=== PATIENT | female | born 1970 | race Caucasian/White ===

== ENCOUNTER → 2023-10-30 | Emergency (ER) | payer OTHER ==
[~2023-10-30] MED LIST: KETOROLAC 30 MG/ML INJ ONE; MORPHINE 4 MG/ML SYR ONE; NA CHLORIDE 0.9% 1,000 ML ONE; ONDANSETRON 4 MG/2 ML VIAL ONE; TAMSULOSIN 0.4 MG SR CAP ONE
--- OUTSIDE RECORDS SUMMARY | 2023-10-30 05:04 | XMS REPORT | Continuity of Care Document ---
Author Name Unknown Address [address] [facility] [address]. [address] th[address] Address [address] [facility]. [address] [place] [address] Care Team Providers Care Field Inspector Name Role Phone [email or web address] Attending Clinician Unavaila ble [email or web address] Admitting Clinician Unavaila ble Payers Payer Name Policy Type Policy Number Effective Date Expirati on Date Source AETJAGDEEP (PPO) [id number] 2018 00:00:00 Encounters Start Date/Time End Date/Time Encounter Type Admission Type Attending Clinicians Care Facility Care Department Encounter ID Source 2023-07-09 00:00:00 2023-07-09 00:00:00 Outpatient GC_SWHASLWC _NguyenC PRIV PRIV [id number] [facility] 2023-07-08 00:00:00 2023-07-08 00:00:00 Outpatient GC_[email or web address] _NguyenC PRIV PRIV [id number] [facility] 2017-12-14 00:00:00 2017-12-14 00:00:00 Outpatient GC_SWHASLWC _NguyenC PRIV PRIV [id number] [facility]
[2023-10-30 05:54] LABS: Absolute Lymphocytes (CBC) 1.6 K/uL (0.7-4.9); Hematocrit 42.9 % (36.0-45.0); Lymphocytes % 14.8 % (15.3-44.8); MCV 89.1 fL (80-100); MPV 9.2 fL (7.6-11.3); Platelets 262 thou/uL (152-406); RBC Red Blood Cell Count 4.82 M/uL (3.86-4.86)
[2023-10-30 06:00] LABS: Specific Gravity 1.019 (1.005-1.030); Urine Bacteria <20 /HPF (<20); Urine Bilirubin NEGATIVE (Negative); Urine Blood Negative (Negative); Urine Clarity Extremely Turbid (Clear); Urine Color Light-Yellow (Yellow); Urine Glucose TRACE (Negative); Urine Mucus Slight /HPF (None Seen); Urine Protein NEGATIVE (Negative); Urine RBC <5 /HPF (None Seen); Urine Urobilinogen Normal (Normal); Urine pH 6.5 (5.0-7.0)
[2023-10-30 06:08] LABS: ALT/SGPT 22 U/L (13-56); AST/SGOT 15 U/L (15-37); Albumin 3.7 g/dL (3.4-5.0); Alkaline Phosphatase 84 U/L (45-117); BUN Blood Urea Nitrogen 24 mg/dL (7-18); Bicarbonate 21 mEq/L (21-32); Bilirubin Total 0.4 mg/dL (0.2-1.0); Glomerular Filtration Rate 75 ml/min (=/>90); Glucose Level 190 mg/dL (74-106); Lipase 39 U/L (13-75); Potassium 3.4 mEq/L (3.5-5.1); Sodium Level 139 mEq/L (136-145)
[2023-10-30 06:10] LABS: C-Reactive Protein < 2.90 mg/L (<3.00)
--- NOTE | 2023-10-30 07:41 | ER ---
Nurse's Notes [facility] Name: Lachelle Arora Age: 53 yrs Sex: Female : 1970 Arrival Date: 10/30/2023 Time: 05:01 Bed 5 Private MD: Diagnosis: Left ureteral calculus with obstruction. Acute left lower abdominal pain Presentation: 10/30 05:13 Chief complaint: Patient states: abdominal pain at 0230. had 3 BM with minimal relief. lg3 pain to left lower quadrant radiating to left pelvis. 6/10 constant. reports nausea and body shakes. Coronavirus screen: Client denies travel out of the [place] in the last 14 days. At this time, the client does not indicate any symptoms associated with coronavirus-19. Ebola Screen: No symptoms or risks identified at this time. Initial Sepsis Screen: Does the patient meet any 2 criteria? No. Patient's initial sepsis screen is negative. Does the patient have a suspected source of infection? No. Patient's initial sepsis screen is negative. Risk Assessment: Do you want to hurt yourself or someone else? Patient reports no desire to harm self or others. Onset of symptoms was October 30, 2023 at 02:30. 05:13 Method Of Arrival: Ambulatory lg3 05:13 Acuity: CLAY 3 lg3 Triage Assessment: 05:15 General: Appears in no apparent distress. uncomfortable, Behavior is calm, cooperative. lg3 Pain: Complains of pain in left lower quadrant. EENT: No deficits noted. No signs and/or symptoms were reported regarding the EENT system. Neuro: No deficits noted. Freitas Agitation-Sedation Scale (RASS): 0 - Alert and Calm Level of Consciousness is awake, alert, obeys commands, Oriented to person, place, time, situation. Cardiovascular: No deficits noted. Denies chest pain, shortness of breath, Capillary refill < 3 seconds Clubbing of nail beds is absent JVD is absent Patient's skin is warm and dry. Respiratory: No deficits noted. Airway is patent Respiratory effort is even, unlabored, Respiratory pattern is regular, symmetrical. GI: Abdomen is round non-distended, Reports lower abdominal pain. : No deficits noted. No signs and/or symptoms were reported regarding the genitourinary system. Derm: No deficits noted. No signs and/or symptoms reported regarding the dermatologic system. Skin is intact, is healthy with good turgor, Skin is dry, Skin is normal, Skin temperature is warm. Musculoskeletal: No deficits noted. No signs and/or symptoms reported regarding the musculoskeletal system. Circulation, motion, and sensation intact. Range of motion: intact in all extremities. 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 - Social history:: Smoking status: Patient denies any tobacco usage or history of. Patient uses alcohol, weekly. - Family history:: not pertinent. Screenin:12 [facility] ED Fall Risk Assessment (Adult) History of falling in the last 3 months, la4 including since admission No falls in past 3 months (0 pts) Confusion or Disorientation No (0 pts) Intoxicated or Sedated No (0 pts) Impaired Gait No (0 pts) Mobility Assist Device Used No (0 pt) Altered Elimination No (0 pt) Score/Fall Risk Level 0 - 2 = Low Risk Maintained a safe environment, Provided non-skid footwear. Abuse screen: Denies threats or abuse. Denies injuries from another. Nutritional screening: No deficits noted. Tuberculosis screening: No symptoms or risk factors identified. Assessment: 05:30 General: Appears uncomfortable, ill, Behavior is calm, cooperative, appropriate for la4 age. Pain: Complains of pain in right lower quadrant and left lower quadrant Pain does not radiate. Pain currently is 10 out of 10 on a pain scale. Quality of pain is described as aching, Pain began suddenly, reports woke pt from sleep this am at 2 Is continuous, Alleviated by nothing. 05:30 Neuro: Freitas Agitation-Sedation Scale (RASS): 0 - Alert and Calm Level of la4 Consciousness is awake, alert, obeys commands, Oriented to person, place, time, situation, Appropriate for age. Cardiovascular: No deficits noted. Denies chest pain, lightheadedness, shortness of breath, Heart tones S1 S2 Capillary refill < 3 seconds is brisk Patient's skin is warm and dry. Rhythm is sinus rhythm. Respiratory: Airway is patent Respiratory effort is even, unlabored, Respiratory pattern is regular, symmetrical, tachypnea Breath sounds are clear bilaterally. GI: Bowel sounds present X 4 quads. hyperactive in right lower quadrant and left lower quadrant Abd is soft and non tender. : No deficits noted. Derm: No deficits noted. Musculoskeletal: No deficits noted. 07:00 Reassessment: Patient appears in no apparent distress at this time. No changes from kc6 previously documented assessment. Patient and/or family updated on plan of care and expected duration. Pain level reassessed. Patient is alert, oriented x 3, equal unlabored respirations, skin warm/dry/pink. 08:00 Reassessment: Patient appears in no apparent distress at this time. No changes from kc6 previously documented assessment. Patient and/or family updated on plan of care and expected duration. Pain level reassessed. Patient is alert, oriented x 3, equal unlabored respirations, skin warm/dry/pink. Vital Signs: 05:13 BP 156 / 107; Pulse 69; Resp 17 S; Pulse Ox 100% on R/A; Weight 81.65 kg (R); Height 5 lg3 ft. 4 in. (R); 05:30 BP 158 / 105; Pulse 59; Resp 16; Temp 97.7; Pulse Ox 97% on R/A; Pain 10/10; la4 07:05 BP 171 / 99; Pulse 56; Resp 15 S; Pulse Ox 100% on R/A; kc6 05:13 Body Mass Index 30.90 (81.65 kg, 162.56 cm) lg3 05:30 Pain Scale: Adult la4 Vitals: 05:30 Cardiac Rhythm Assessment Regular Sinus erich. la4 Zenia Coma Score: 05:30 Eye Response: spontaneous(4). Motor Response: obeys commands(6). Verbal Response: la4 oriented(5). Total: 15. ED Course: 05:04 Patient arrived in ED. jj6 05:12 Adams Nice MD is Attending Physician. sp4 05:15 Triage completed. lg3 05:15 Arm band placed on left wrist. lg3 05:26 Radiology exam delayed due to lab results not completed at this time. (BUN/Creatinine) eh4 IV insertion attempt and/or patient not having appropriate IV at this time. 05:41 Inserted saline lock: 20 gauge in right antecubital area, using aseptic technique. ls5 Blood collected. 05:41 Urine collected: clean catch specimen, clear. ls5 05:55 CRP Sent. la4 05:55 Lipase Sent. la4 05:55 CMP Sent. la4 05:55 Urinalysis w/ reflexes Sent. la4 06:12 Awaiting lab results. la4 06:12 Fall risk band placed. Placed in gown. Bed in low position. Call light in reach. Side la4 rails up X2. Provided Education on: Plan of care. 06:12 No provider procedures requiring assistance completed. la4 06:18 CT Abd/Pelvis - IV Contrast Only Sent. la4 06:33 CT Abd/Pelvis - IV Contrast Only In Process Unspecified. EDMS 07:40 Fredy Sharma MD is Referral Physician. sp4 07:41 Dayami Armenta, RODRIGO is Primary Nurse. kc6 08:01 IV discontinued, intact, bleeding controlled, No redness/swelling at site. Pressure kc6 dressing applied. Administered Medications: 05:45 Drug: Ketorolac IVP 30 mg IVP once Route: IVP; Site: right antecubital; la4 07:00 Follow up: Response: No adverse reaction; Pain is decreased kc6 05:45 Drug: Ondansetron IVP 4 mg IVP once; over 2 minutes Route: IVP; Site: right antecubital;la4 07:00 Follow up: Response: No adverse reaction; Nausea is decreased; Vomiting decreased kc6 05:48 Drug: morphine IVP or IV 4 mg IVP once over 4 mins Route: IVP; Infused Over: 4 mins; la4 Site: right antecubital; 07:00 Follow up: Response: No adverse reaction; Pain is decreased; RASS: Alert and Calm (0) kc6 05:56 Drug: NS 0.9% IV 1000 ml IV at 1 bolus Per protocol; 1000 mL bolus Route: IV; Rate: 1 la4 bolus; Site: right antecubital; 07:00 Follow up: Response: No adverse reaction; IV Status: Completed infusion; IV Intake: kc6 1000ml 07:41 Drug: Flomax PO 0.4 mg PO once Route: PO; kc6 08:00 Follow up: Response: No adverse reaction kc6 Medication: 08:01 VIS not applicable for this client. kc6 Intake: 07:00 IV: 1000ml; Total: 1000ml. kc6 Outcome: 07:41 Discharge ordered by . spPerla 08:00 Discharged to home ambulatory, with family, kc6 08:00 Condition: improved 08:00 Discharge instructions given to patient, Instructed on discharge instructions, follow up and referral plans. medication usage, Demonstrated understanding of instructions, follow-up care, medications, Prescriptions given X 4, 08:01 Patient left the ED. kc6 Signatures: Dispatcher [employer] EDMS Naty Roblero, RN RN lg3 Shasta Yoder6 Dayami Armenta RN RN kc6 Anuj Wyatt 4 Tio Eugene5 Adams Nice MD MD sp4 Carloz Hanson, RN RN la4 Corrections: (The following items were deleted from the chart) 05:19 05:13 Chief complaint: Patient states: abdominal pain at 0230. had 3 BM with minimal lg3 relief. pain to left lower quadrant. 6/10 constant. reports nausea and body shakes lg3
--- NOTE | 2023-10-30 07:41 | EDPHYS ---
Physician Documentation [facility] Name: Lachelle Arora Age: 53 yrs Sex: Female : 1970 Arrival Date: 10/30/2023 Time: 05:01 Bed 5 Private MD: ED Physician Adams Nice HPI: 10/30 05:12 This 53 yrs old Female presents to ER via Unassigned with complaints of sp4 Abdominal Pain, Nausea/Vomiting. 05:21 Past surgical history is abdominoplasty, breast reduction, hysterectomy. Patient sp4 presents with onset acute abdominal pain left lower quadrant starting just prior to arrival on awakening. Associated with nausea.. 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 - Social history:: Smoking status: Patient denies any tobacco usage or history of. Patient uses alcohol, weekly. - Family history:: not pertinent. ROS: 05:21 Constitutional: Negative for fever, chills, and weight loss, Eyes: Negative for injury, sp4 pain, redness, and discharge, ENT: Negative for injury, pain, and discharge, Neck: Negative for injury, pain, and swelling, Cardiovascular: Negative for chest pain, palpitations, and edema, Respiratory: Negative for shortness of breath, cough, wheezing, and pleuritic chest pain, Abdomen/GI: Left lower abdominal pain, positive nausea 05:21 All other systems are negative, Exam: 05:21 Constitutional: This is a well developed, well nourished patient who is awake, alert, sp4 and in no acute distress. Head/Face: Normocephalic, atraumatic. Eyes: Pupils equal round and reactive to light, extra-ocular motions intact. Lids and lashes normal. Conjunctiva and sclera are not injected. Cornea within normal limits. Periorbital areas with no swelling, redness, or edema. ENT: Nares patent. No nasal discharge, no septal abnormalities noted. Tympanic membranes are normal and external auditory canals are clear. Oropharynx with no redness, swelling, or masses, exudates, or evidence of obstruction, uvula midline. Mucous membranes moist. Neck: Trachea midline, no thyromegaly or masses palpated, and no cervical lymphadenopathy. Supple, full range of motion without nuchal rigidity, or vertebral point tenderness. Chest/axilla: Normal chest wall appearance and motion. Nontender with no deformity. No lesions are appreciated. Cardiovascular: Regular rate and rhythm with a normal S1 and S2. No gallops, murmurs, or rubs. Normal PMI, no JVD. No pulse deficits. Respiratory: Lungs have equal breath sounds bilaterally, clear to auscultation and percussion. No rales, rhonchi or wheezes noted. No increased work of breathing, no retractions or nasal flaring. Abdomen/GI: Soft, with normal bowel sounds. No distension or tympany. No guarding Carcinoma abdominoplasty, left lower quadrant abdominal tenderness with positive rebound Back: No spinal tenderness. No costovertebral tenderness. Skin: Warm, dry with normal turgor. Normal color with no rashes, no lesions, and no evidence of cellulitis. MS/ Extremity: Pulses equal, no cyanosis. Neurovascular intact. Full, normal range of motion. Neuro: Awake and alert, GCS 15, oriented to person, place, time, and situation. Cranial nerves II-XII grossly intact. Motor strength 5/5 in all extremities. Sensory grossly intact. Psych: Awake, alert, with orientation to person, place and time. Behavior, mood, and affect are within normal limits Vital Signs: 05:13 BP 156 / 107; Pulse 69; Resp 17 S; Pulse Ox 100% on R/A; Weight 81.65 kg (R); Height 5 lg3 ft. 4 in. (R); 05:30 BP 158 / 105; Pulse 59; Resp 16; Temp 97.7; Pulse Ox 97% on R/A; Pain 10/10; la4 07:05 BP 171 / 99; Pulse 56; Resp 15 S; Pulse Ox 100% on R/A; kc6 05:13 Body Mass Index 30.90 (81.65 kg, 162.56 cm) lg3 05:30 Pain Scale: Adult la4 Closplint Coma Score: 05:30 Eye Response: spontaneous(4). Motor Response: obeys commands(6). Verbal Response: la4 oriented(5). Total: 15. MDM: 05:12 Patient medically screened. sp4 05:26 Differential diagnosis: Nonspecific abd pain, gastritis, cholecystitis, pancreatitis, sp4 appendicitis, diverticulitis, viral gastroenteritis, gastroenteritis. Data reviewed: vital signs, nurses notes, lab test result(s), radiologic studies, CT scan. 07:27 ED course: Impression: 1. Obstructing 6 mm calculus distal LEFT ureter with left renal sp4 edema and/or delayed cortical contrast excretion with mild perinephric stranding. Calyceal and/or cortical cysts. 2. Bilateral nephrolithiasis. 3. 3.5 cm left adnexal cyst. 4. Diverticulosis. 5. Transverse colonic edema- possible colitis. 6. Increased jejunal enhancement may be due to ileus. 7. Hepatomegaly and steatosis. Hepatic cyst and indeterminate hepatic mass. 8. 5.8 cm hiatal hernia. Electronically signed by: Jason Valerio MD 10/30/2023 07:23 AM. 07:45 Consideration of Admission/Observation Escalation of care including sp4 admission/observation considered. ED course: Patient was discussed with urology Dr. Sharma who states that patient may be able to go home if the pain is fully controlled. Patient states pain is under control. Will prescribe Flomax, ondansetron, Toradol, Tylenol No. 4. Mother advised to schedule appointment with Dr. Sharma in 1 to 2 days for office follow-up.. 10/30 05:21 Order name: CBC with Diff; Complete Time: 07:25 sp4 10/30 05:21 Order name: CMP; Complete Time: 07:25 sp4 10/30 05:21 Order name: Lipase; Complete Time: 07:25 sp4 10/30 05:21 Order name: Urinalysis w/ reflexes; Complete Time: 07:25 sp4 10/30 05:21 Order name: CRP; Complete Time: 07:25 sp4 10/30 05:21 Order name: CT Abd/Pelvis - IV Contrast Only; Complete Time: 07:56 sp4 10/30 05:21 Order name: IV Saline Lock; Complete Time: 05:41 sp4 10/30 05:21 Order name: Labs collected and sent; Complete Time: 05:41 sp4 Administered Medications: 05:45 Drug: Ketorolac IVP 30 mg IVP once Route: IVP; Site: right antecubital; la4 07:00 Follow up: Response: No adverse reaction; Pain is decreased kc6 05:45 Drug: Ondansetron IVP 4 mg IVP once; over 2 minutes Route: IVP; Site: right antecubital;la4 07:00 Follow up: Response: No adverse reaction; Nausea is decreased; Vomiting decreased kc6 05:48 Drug: morphine IVP or IV 4 mg IVP once over 4 mins Route: IVP; Infused Over: 4 mins; la4 Site: right antecubital; 07:00 Follow up: Response: No adverse reaction; Pain is decreased; RASS: Alert and Calm (0) kc6 05:56 Drug: NS 0.9% IV 1000 ml IV at 1 bolus Per protocol; 1000 mL bolus Route: IV; Rate: 1 la4 bolus; Site: right antecubital; 07:00 Follow up: Response: No adverse reaction; IV Status: Completed infusion; IV Intake: kc6 1000ml 07:41 Drug: Flomax PO 0.4 mg PO once Route: PO; kc6 08:00 Follow up: Response: No adverse reaction kc6 Disposition Summary: 10/30/23 07:41 Discharge Ordered Notes: Increase fluid intake Location: Home sp4 Problem: new sp4 Symptoms: have improved sp4 Condition: Stable sp4 Diagnosis - Left ureteral calculus with obstruction. Acute left lower abdominal pain sp4 Followup: sp4 - With: Fredy Sharma MD - When: 1 - 2 days - Reason: Recheck today's complaints Discharge Instructions: - Discharge Summary Sheet sp4 - Kidney Stones, [id number] sp4 Forms: - Prescription Opioid Use sp4 Prescriptions: - Flomax 0.4 mg Oral capsule - take 1 capsule ORAL route daily; 30 capsule; Refills: 0, Product Selection sp4 Permitted - acetaminophen-codeine 300-60 mg Oral tablet - take 1 tablet ORAL route every 6 hours PRN pain; 20 tablet; Refills: 0, Product sp4 Selection Permitted - ketorolac 10 mg Oral tablet - take 1 tablet ORAL route every 8 hours PRN pain; 30 tablet; Refills: 0, Product sp4 Selection Permitted - ondansetron 8 mg Oral Tablet,disintegrating - take 1 tablet ORAL route every 6 hours PRN nausea; 30 tablet; Refills: 0, sp4 Product Selection Permitted Signatures: Dispatcher [employer] Naty Moctezuma RN RN lg3 Dayami Armenta RN RN kc6 Adams Nice MD MD sp4 Carloz Hanson RN RN la4
--- NOTE | 2023-10-30 07:44 | RAD REPORT ---
EXAM DESCRIPTION: CTAbdomen Pelvis W Contrast - 10/30/2023 6:31 am CLINICAL HISTORY: Abdominal pain. ABD AND PELVIC PAIN, NAUSEA COMPARISON: No comparisons TECHNIQUE: Biphasic CT imaging of the abdomen and pelvis was performed with 100 ml non-ionic IV cont rast. All CT scans are performed using dose optimization technique as appropriate and may include automated exposure control or mA/KV adjustment according to patient size. FINDINGS: The lung bases are clear.Moderate hiatal hernia. Probable cholelithiasis. The liver demonstrates nonspecific low-density lesion in the right lobe measuring 16 mm. No solid mas s or biliary dilatation. The spleen is normal in size. The pancreas and adrenal glands are normal. 5 mm stone is present at the left UVJ resulting in mild left hydronephrosis. Additional stones are pres ent in the calices of the left kidney. The largest measuring 9 mm. Benign cyst is present left kidney . Small nonobstructing calculi right kidney inferiorly. No bowel obstruction, free air, free fluid or abscess. Significant diverticulosis coli is present in the left lower quadrant sigmoid colon. The appendix is normal. 37 mm left ovarian follicle. No eviden ce of significant lymphadenopathy. No suspicious bony findings. IMPRESSION: 5 mm stone left UVJ is seen with mild left hydronephrosis. Additional stones are present in the calices of both kidneys, largest measuring 9 mm on the left. Prominent diverticulosis coli of sigmoid colon without diverticulitis.
[2023-10-30 09:46] VITALS: BP 171/99; TEMP 97.7; O2SAT 100
== END ==
LOC: ER 05:01
DX: N20.1 Calculus of ureter (principal); F32.A Depression, unspecified
CPT/HCPCS: 85025; 81001; 36415; 83690; 80053; 86140; 74177; Q9967; J2405; J7030; 96361; 96374; 96375; 99284

== ENCOUNTER 2023-10-31 17:54 | Observation (INO) | payer OTHER ==
[2023-10-31] MEDS ORDERED: Ringers Lactate 1,000 ML IV ONE ×2 (18:30→23:38)
[2023-10-31 19:24] LABS: Protime INR 1.2
[2023-10-31] MEDS ORDERED: CEFTRIAXONE 1000 MG/VIAL ONE (19:33)
[2023-10-31] MEDS ORDERED: FENTANYL CITR 100 MCG/2 ML ONE (19:43)
[2023-10-31] MEDS ORDERED: propofoL 200 MG/20 ML VIAL IV ONE (19:43)
[2023-10-31] MEDS ORDERED: MIDAZOLAM HCL 2 MG/2 ML INJ ONE (19:43)
--- NOTE | 2023-10-31 20:41 | P.OP ---
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 Procedure note: The patient was consented in the preoperative holding area before being transferred to the operative suite where general anesthesia was induced. She was given ceftriaxone 1 g IV antimicrobial prophylaxis, and pneumoboots were provided for DVT prophylaxis. She was placed in the lithotomy position, padded and secured to the table appropriately. Her genitalia was prepped with Hibiclens and she was draped in standard fashion. The case was begun using the 22 [place] rigid cystoscope to traverse the urethra and into the bladder. The bladder was surveyed after it was decompressed of fluid and urine and refilled with sterile saline. There was evidence of mild cystitis observed multifocally throughout the bladder. The ureteral orifices were orthotopic in location. The left ureteral orifice was cannulated using the tip of a 5 [place] ureteral access catheter and a retrograde pyelogram was performed. Left retrograde pyelography: Using a 70: 30 mixture of Omnipaque and saline, contrast was injected via the lumen of the 5 [place] ureteral access catheter after initial spot fluoroscopic imagery revealed the presence of a rather linear radiopaque calculus in the distal ureter at a point obstructing further advancement of the 5 [place] access catheter. The contrast was injected and did surpass the point of obstruction bu t then filled and pulled within the mid distal ureter where there was significant ureteronephrosis. Contrast at this point did not enter the renal pelvis or calyces, and there was significant tortuosity of the ureter identified. As a result, under live fluoroscopic imagery, I injected additional contrast just until some of it appeared within the calyces of the kidney to identify the appropriate target localization for the stent. I then passed the sensor wire via the 5 [place] ureteral access catheter and coiled it within the upper pole of the left kidney. At this point, I remove the 5 [place] ureteral access catheter and did observe significant eflux from the ureteral orifice of purulent appearing urine. I collected some of that urine for culture as left renal urine culture. I then passed a 6 [place] by 26 cm double-J ureteral stent over the wire into the upper pole of her kidney where the wire was removed and a coil was formed and observed fluoroscopically in the upper pole calyx. An additional coil was formed cystoscopically in the bladder. I then observed significant additional purulent drainage from the stent out of the kidney at which point I then placed a 16 [place] Hodge catheter into her bladder to further aid in decompression of that urine. She was then taken out of the lithotomy position, awakened from general anesthesia, transferred to a stretcher, and then transferred to the recovery room in good condition. Complications: None Discharge disposition: She will be observed in PACU, but since she was observed to be nearly febrile with a temperature of 100.1 immediately postoperatively, given the appearance of the urine, I recommended admission and observation. We will continue her on ceftriaxone and plan discharge on cefpodoxime as long as she does not decompensate overnight and otherwise remains afebrile, pending the results of the urine culture. Subsequent follow-up to manage the obstructing ureteral calculus and her residual nephrolithiasis will be required. Findings and Operative Technique
[2023-10-31] MEDS ORDERED: HYDROCODONE/APAP 5/325 MG TAB PO PRN (20:54)
[2023-10-31] MEDS ORDERED: PHENAZOPYRIDINE 100MG TAB PO PRN (20:54)
[2023-10-31] MEDS ORDERED: ONDANSETRON 4 MG/2 ML VIAL IV PRN (20:54)
[2023-10-31] MEDS ORDERED: OXYBUTYNIN ER 5 MG TAB PO PRN (20:54)
--- OUTSIDE RECORDS SUMMARY | 2023-10-31 21:09 | XMS REPORT | Continuity of Care Document ---
Author Name Unknown Address [address] [facility] [address]. [address] th[address] Address [address] [facility]. [address] [place] [address] Care Team Providers Care Plant Packer Name Role Phone [email or web address] Attending Clinician Unavaila ble [email or web address] Admitting Clinician Unavaila ble Payers Payer Name Policy Type Policy Number Effective Date Expirati on Date Source [id number] (PPO) [id number] 2018 00:00:00 Encounters Start Date/Time End Date/Time Encounter Type Admission Type Attending Clinicians Care Facility Care Department Encounter ID Source 2023-07-09 00:00:00 2023-07-09 00:00:00 Outpatient GC_[email or web address] _NguyenC PRIV PRIV [id number] [facility] 2023-07-08 00:00:00 2023-07-08 00:00:00 Outpatient GC_[email or web address] _NguyenC PRIV PRIV [id number] [facility] 2017-12-14 00:00:00 2017-12-14 00:00:00 Outpatient [email or web address] _NguyenC PRIV PRIV [id number] [facility]
[2023-10-31 21:26] VITALS: BMI 30.7
[2023-10-31] MEDS: Ringers Lactate 1,000 ML IV SCH (21:55)
[2023-10-31] MEDS: ACETAMINOPHEN 500 MG TAB PO PRN (23:44)
[2023-11-01] MEDS ORDERED: CEFEPIME 1 GM in NA CHLORIDE 0.9% 100 ML IV SCH ×2
--- NOTE | 2023-11-01 00:24 | P.HP ---
Certification for Inpatient Patient admitted to: Inpatient With expected LOS: >2 Midnights Practitioner: I am a practitioner with admitting privileges, knowledge of patient current condition, hospital course, and medical plan of care. Services: Services provided to patient in accordance with Admission requirements found in Title 42 Section 412.3 of the Code of Federal Regulations Patient History Date of Service: 11/01/23 Reason for admission: Sepsis History of Present Illness: 53-year-old female with past medical history of depression and ADD who underwent cystoscopy and left retrograde pyelography and left ureteral stent placement as she was found to have left ureterolithiasis and cystitis and pyelonephrosis. Patient had surgery done yesterday and was admitted for observation. Patient developed high fever and medicine was consulted for further management. Patient started having fever for the last 2-3 days. Denies any chest pain or shortness of breath. No nausea or vomiting. Pain is controlled well. Appreciate help from Dr. Sharma. She underwent Cystoscopy ,Left retrograde pyelography, Left ureteral stent placement ,16 [place] urethral Hodge catheter placement Allergies No Known Allergies Allergy (Verified 10/31/23 21:56) Home medications list reviewed: Yes Home Medications: Dextroamphetamine/Amphetamine [Mydayis ER 25 mg Capsule] 25 mg PO DAILY 10/31/23 Sertraline [Zoloft*] 100 mg PO DAILY 10/31/23 - Past Medical/Surgical History Has patient received pneumonia vaccine in the past: No Diabetic: No Past Medical History: Reviewed- Non-Contributory -: depression Past Surgical History: Reviewed- Non-Contributory -: tummy tuck -: hysterectomy -: abdominal plasty - Family History Family History: Reviewed- Non-Contributory - Family History Father -: Hypertension, Diabetes Mother -: Cancer Notes: cervical cancer - Social History Smoking Status: Never smoker Alcohol use: No CD- Drugs: No Place of Residence: Home Review of Systems 10-point ROS is otherwise unremarkable General: Weakness, Malaise Eyes: Unremarkable ENT: Unremarkable Respiratory: Unremarkable Cardiovascular: Unremarkable Gastrointestinal: Abdominal Pain Genitourinary: Dysuria Musculoskeletal: Unremarkable Physical Examination - Vital Signs Temperature: 101.2 F Blood Pressure: 128/61 Pulse: 100 Respirations: 16 - Physical Exam General: Alert, Oriented x3, Mild distress HEENT: Atraumatic, Normocephalic Neck: Supple Respiratory: Clear to auscultation bilaterally, Normal air movement Cardiovascular: No edema, Regular rate/rhythm, Normal S1 S2 Capillary refill: <2 Seconds Gastrointestinal: Soft and benign, W/out hepatosplenomegaly, No ascites, No guarding Musculoskeletal: No clubbing, No swelling Integumentary: No rashes, No breakdown Neurological: Normal speech, Normal strength at 5/5 x4 extr, Normal tone, Cranial nerves 3-12 intact Lymphatics: No axilla or inguinal lymphadenopathy - Studies Laboratory Data (last 24 hrs) 10/31/23 18:43 PT 13.1 H INR 1.20 APTT 26.3 Assessment and Plan - Problems (Diagnosis) (1) Severe sepsis Current Visit: Yes Status: Acute Plan: Patient continues to spike fevers Possible sources UTI Started on IV antibiotic Patient already was on Rocephin Will change to cefepime Will obtain cultures Will change antibiotic as per sensitivity Supportive management with IV fluids and antipyretics (2) Ureterolithiasis Current Visit: Yes Status: Acute Plan: Appreciate help from urology Pain controlled well Status post cystoscopy and stent placement (3) Status post cystoscopy with ureteral stent placement Current Visit: Yes Status: Acute Plan: Supportive management Awaiting cultures Pain control Discharge Plan: Home Plan to discharge in: 48 Hours - Advance Directives Does patient have a Living Will: No Does patient have a Durable POA for Healthcare: No Time Spent Managing Pts Care (In Minutes): 48
[2023-11-01] MEDS ORDERED: IBUPROFEN 400 MG TAB PO PRN (00:27)
[2023-11-01] MEDS: CEFEPIME 1 GM in NA CHLORIDE 0.9% 100 ML IV SCH ×3 (00:34→16:51)
[2023-11-01 00:56] LABS: Absolute Lymphocytes (CBC) 0.5 K/uL (0.7-4.9); Hematocrit 38.8 % (36.0-45.0); Lymphocytes % 4.6 % (15.3-44.8); MCV 89.3 fL (80-100); MPV 9.6 fL (7.6-11.3); Platelets 186 thou/uL (152-406); RBC Red Blood Cell Count 4.34 M/uL (3.86-4.86)
[2023-11-01 01:05] LABS: Bilirubin Total 0.6 mg/dL (0.2-1.0); Potassium 3.4 mEq/L (3.5-5.1); Protein, Total 7.2 g/dL (6.4-8.2)
[2023-11-01 02:20] LABS: Blood Morphology Comment NOT SEEN (NOT SEEN); Platelet Estimate ADEQ
[2023-11-01] MEDS: Ringers Lactate 1,000 ML IV SCH ×3 (05:00→21:00)
[2023-11-01] MEDS ORDERED: CEFTRIAXONE 1,000 MG in NA CHLORIDE 0.9% 50 ML IVPB SCH (09:00)
[2023-11-01] MEDS: ACETAMINOPHEN 500 MG TAB PO PRN ×2 (10:17→20:06)
--- NOTE | 2023-11-01 15:07 | EKG ---
Test Date: 2023-10-31 Test Time: 19:50:22 Electrotype Molder: BIANCA MEASUREMENT RESULTS: Intervals: Rate: 90 NH: 130 QRSD: 90 QT: 348 QTc: 425 [place]: P: 25 NH: 130 QRS: -31 T: 77 INTERPRETIVE STATEMENTS: Normal sinus rhythm Left axis deviation Anteroseptal infarct, age undetermined Abnormal ECG Compared to ECG 07/13/2010 07:19:50 Left-axis deviation now present Myocardial infarct finding still present Electronically Signed On 11-01-23 15:06:09 DOCUMENTATION SPECIALIST by Paulie Gibbons
[2023-11-01 21:13] VITALS: O2SAT 95
[2023-11-02] MEDS: CEFEPIME 1 GM in NA CHLORIDE 0.9% 100 ML IV SCH ×2 (00:55→08:38)
[2023-11-02] MEDS: Ringers Lactate 1,000 ML IV SCH ×3 (00:56→13:00)
--- NOTE | 2023-11-02 15:09 | P.PN ---
Subjective Date of Service: 11/02/23 Chief Complaint: SIRS and pyelonephritis Subjective: Tolerating diet, Ambulating, Improving Doing well and desiring discharge strongly. Mild pyrexis overnight without definitive fever. No significant stent pain though voiding frequently and large volumes. Comfortable and well-appearing. Review of Systems 10-point ROS is otherwise unremarkable Physical Examination - Vital Signs Temperature: 98.5 F Blood Pressure: 147/96 Pulse: 72 Respirations: 16 Pulse Ox (%): 95 - Physical Exam General: Alert, In no apparent distress, Oriented x3, Cooperative HEENT: Atraumatic, Normocephalic, PERRLA, Mucous membr. 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 I explained we were awaiting sensitivities of the most recent cultures, which could take potentially till tomorrow to become available. Since she was strongly desiring discharge today, I warned of the potential for a resistant organism requiring IV antimicrobials, and if she were allowed to go home, there was the potential need for readmission. Alternatively, there may be need to exchange the oral antimicrobials provided if we discharged her with an antimicrobial to which the organism was insensitive. -After consideration, she agreed to do what ever I recommended, but she still expressed a strong desire for discharge today. As a result, we agreed to the following: -We will await hopeful sensitivities of the culture results availability around 6 PM and plan to discharge her thereafter. -Levaquin 500 mg p.o. daily x 11 additional days, for a total of 14 days of therapy If sensitive to Levaquin as expected, no need for any alteration. If not sensitive to Levaquin but sensitive to a another tissue penetrating oral antimicrobial, will alter the antimicrobial prescription prior to discharge. If no oral antimicrobial appropriate, discharge will be canceled, and she will have to remain as an inpatient to receive a PICC line and to be set up for home antimicrobial therapy, which she certainly could administer for herself with ass istance. -If the culture sensitivities are not available by 6:30 PM, we will discharge her with Levaquin, and we will follow-up additional sensitivity results when they become available tomorrow or Saturday. -We will plan operative left ureteroscopy with laser lithotripsy and stent exchange within the coming weeks, after she has completed (or at the very end of) the 2 weeks of antimicrobial therapy. -Ditropan 5 mg extended release provided for stent discomfort as needed Discharge Plan: Home - Code Status/Comfort Care Code Status: Full Code Critical Care: No Time Spent Managing PTS Care (In Minutes): 45
--- NOTE | 2023-11-02 15:15 | P.DS ---
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 Hospital Course: Admitted after left ureteral stent placement 10/31/2023 for SIRS, suspected pyelonephritis/complicated UTI, possible sepsis and initiated on ceftriaxone after left upper tract urine cultures were taken intraoperatively. Shortly after admission, she became febrile with temperatures above 102, and she remained tachycardic, which prompted sepsis protocol -1 L IV fluid bolus on top of maintenance fluids, blood cultures, repeat urine culture, and alteration of antimicrobial therapy to cefepime 1 g every 24 hours. Over the course of the next 24 hours, she continued to spike fevers, ultimately defervescing within the last 24 hours of admission. She is now back to her baseline, feeling well, eating and drinking, voiding normally, and strongly desiring to be discharged home. Vital Signs/Physical Exam: Temp Pulse Resp BP Pulse Ox 98.5 F 72 16 147/96 H 95 11/02/23 15:09 11/02/23 15:09 11/02/23 15:09 11/02/23 15:09 11/02/23 15:09 General: Alert, In no apparent distress, Oriented x3, Cooperative HEENT: Atraumatic, Normocephalic, PERRLA, Mucous membr. moist/pink Neck: JVD not distended Respiratory: Normal air movement Gastrointestinal: Soft and benign, No tenderness Musculoskeletal: No clubbing Neurological: Normal speech Laboratory Data at Discharge: WBC Cancelled 11/01/23 05:00 Hgb Cancelled 11/01/23 05:00 Hct Cancelled 11/01/23 05:00 Plt Count Cancelled 11/01/23 05:00 PT 13.1 SECONDS (9.5-12.5) H 10/31/23 18:43 INR 1.20 10/31/23 18:43 APTT 26.3 SECONDS (24.3-36.9) 10/31/23 18:43 Sodium Cancelled 11/01/23 05:00 Potassium Cancelled 11/01/23 05:00 BUN Cancelled 11/01/23 05:00 Creatinine Cancelled 11/01/23 05:00 Glucose Cancelled 11/01/23 05:00 Total Bilirubin 0.6 mg/dL (0.2-1.0) 11/01/23 00:11 AST 20 U/L (15-37) 11/01/23 00:11 ALT 22 U/L (13-56) 11/01/23 00:11 Alkaline Phosphatase 73 U/L (45-117) 11/01/23 00:11 Home Medications: Dextroamphetamine/Amphetamine [Mydayis ER 25 mg Capsule] 25 mg PO DAILY 10/31/23 Sertraline [Zoloft*] 100 mg PO DAILY 10/31/23 levoFLOXacin [Levaquin] 500 mg PO DAILY #11 tab 11/02/23 oxyBUTYnin chloride [Ditropan Xl*] 5 mg PO DAILY PRN #30 tab.sa 11/02/23 New Medications: oxyBUTYnin chloride [Ditropan Xl*] 5 mg PO DAILY PRN #30 tab.sa PRN Reason: stent discomfort levoFLOXacin [Levaquin] 500 mg PO DAILY #11 tab Physician Discharge Instructions: You have a left ureteral stent in place. As you know, this is a foreign body, which must be removed within 6 months maximum to minimize the risk of encrustation and infection. I have sent a prescription for Levaquin, which you should take once a day for the entirety of the prescription to ensure clearance of the kidney infection. Notify me if you develop any fever (temperature greater than 100.4 Fahrenheit), intractable nausea or vomiting, increasing pain not controlled by pain medications, or other unusual signs or symptoms. It is common to see some blood in the urine following your procedure. It will be light pink/cranberry colored initially, and then it will become dark or tea colored, when the blood oxidized is in the urine, before it finally clears up. It is only a concern if you note bright red and thick/nontranslucent (not see-through) blood in the urine that appears like tomato juice. Notify me if you have any difficulty urinating, or if you feel the need to push or strain to urinate, as this may be a problem. I have sent a prescription for oxybutynin, which will help with urinary frequency/urgency symptoms associated with the stent. You may take plain Tylenol (up to 1000 mg every 6 hours maximum) and alternate this every 4 hours with Motrin/ibuprofen (up to 800 mg every 8 hours maximum) or alternatively the ketorolac for pain. Please take note and keep the total 24-hour daily dose of Tylenol/acetaminophen less than 4000 mg / 4 g from all sources. You may purchase [id number] Azo (Pyridium) if you have burning with urination. Please note, it will turn your urine bright orange. Please contact my office to arrange operative scheduling to manage your left ureteral stone and any left renal calculi via ureteroscopy with laser lithotripsy and stent exchange. If you would like to discuss the details of the procedure prior to scheduling, my office would be happy to arrange that preoperative consultation. All the best WBR Diet: Low sodium Activity: Ad carlie Followup: Fredy Sharma [ACTIVE - CAN ADMIT] - 1-2 Weeks Time spent managing pt's care (in minutes): 15
[2023-11-02 16:35] VITALS: BP 145/86; TEMP 98.4
== END 2023-11-02 18:30 | disposition home or self-care (01) ==
LOC: OR 17:54 → 2ND 21:05
PROVIDERS: ADMIT Urology; ATTEND Urology
PROC: 0T778ZZ Dilation of Left Ureter, Via Natural or Artificial Opening Endoscopic (ICD-10-PCS; principal; 2023-10-31 19:30)
DX: T81.44XA Sepsis following a procedure, initial encounter (principal); R65.20 Severe sepsis without septic shock; N10 Acute pyelonephritis; N20.2 Calculus of kidney with calculus of ureter; F32.A Depression, unspecified; F98.8 Other specified behavioral and emotional disorders with onset usually occurring in childhood and adolescence; B96.20 Unspecified Escherichia coli [E. coli] as the cause of diseases classified elsewhere
CPT/HCPCS: 52332; 93005; 87040; 87088; 85025; 87086; 36415; 85610; 83605; 85730; 87077; 87186; 80053; 51600; 74430; J2704; J2250; J3010; J7120 ×7; J0692 ×5; J0696; G0379; G0378 ×3

== ENCOUNTER 2023-11-19 06:33 | Day surgery (SDC) | payer BC, OTHER ==
[2023-11-19] MEDS ORDERED: Ringers Lactate 1,000 ML IV ONE ×2 (07:02→09:03)
[2023-11-19] MEDS ORDERED: propofoL 200 MG/20 ML VIAL IV ONE ×2 (07:11→08:09)
[2023-11-19] MEDS ORDERED: ONDANSETRON 4 MG/2 ML VIAL ONE (07:11)
[2023-11-19] MEDS ORDERED: MIDAZOLAM HCL 2 MG/2 ML INJ ONE (07:14)
[2023-11-19] MEDS ORDERED: LIDOCAINE 1% MPF 5 ML VIAL ONE (07:14)
[2023-11-19] MEDS ORDERED: FENTANYL CITR 100 MCG/2 ML ONE ×2 (07:14→08:10)
[2023-11-19] MEDS ORDERED: CEFAZOLIN SODIUM 2 GM/VIAL ONE (07:27)
[2023-11-19] MEDS ORDERED: HYDROCODONE/APAP 5/325 MG TAB PO PRN (07:41)
[2023-11-19] MEDS ORDERED: EPHEDRINE SULF 50 MG/ML VIAL ONE (07:49)
[2023-11-19] MEDS ORDERED: Phenylephrine HCl 10 MG/ML 1 ML VIAL ONE (07:58)
[2023-11-19] MEDS ORDERED: dexAMETHasone 10 MG/ML VIAL ONE (08:23)
[2023-11-19] MEDS ORDERED: Mastisol Adhesive Liq ONE (08:24)
--- NOTE | 2023-11-19 08:57 | RAD REPORT ---
EXAM DESCRIPTION: RAD - Urethrocystogrphy Retrograde - 11/19/2023 8:44 am CLINICAL HISTORY: ICD N 20.0 FINDINGS: fluoroscopic spot images obtained. Fluoroscopy time 0.16 minutes. Seven fluoroscopic spot images obtained Left ureter was cannulated and contrast administered. Subsequently an ureteral stent was placed. Exam ination was performed by Dr Sharma
--- NOTE | 2023-11-19 09:10 | OP ---
Surgeon: CHERISE MORALES Preoperative Diagnoses: 1.Left nephrolithiasis. 2.Left ureterolithiasis. 3.History of complicated UTI. Postoperative Diagnoses: 1.Left nephrolithiasis. 2.Left ureterolithiasis. 3.History of complicated UTI. Principal Procedures: 1.Cystoscopy. 2.Left ureteroscopy with stone basketing. 3.Left pyeloscopy with laser lithotripsy and stone basketing. 4.Left ureteral stent exchange. Indication For Procedure: Ms. Arora is a 53-year-old woman, who underwent urgent stent placement b ecause of signs of SIRS, suspected sepsis. She was admitted after stent placement with fevers and ul timately grew an infecting organism susceptible to oral fluoroquinolone therapy. She was discharged with a total of 14-day course of therapy to complete, and scheduled for followup, definitive manageme nt of her stones. Of note, she had a 5 to 6 mm distal left ureteral calculus in addition to a 9 mm r enal calculus. Procedure In Detail: The patient was consented in the preoperative holding area before being transfe rred to the operative suite, where general anesthesia was induced. She was given Ancef 2 g IV antimi crobial prophylaxis, and pneumo boots were provided for DVT prophylaxis. She was placed in the litho mick position, padded and secured to the table appropriately. Her genitalia were prepped with Hibicl ens and she was draped in standard fashion. The case was begun using the 22-Iranian rigid cystoscope to traverse the urethra and into the bladder. There was some mild urethral stenosis noted, but this was easily surpassed. Upon entry into the bladder, I decompressed it of fluid and some slightly clou dy-appearing urine and refilled it with sterile saline, where the stent was observed emanating from t he left ureteral orifice. I grasped the tip of the stent using an alligator grasper and delivered it to the meatus leaving in the renal pelvis/proximal ureter as observed fluoroscopically. I then pass ed a Sensor wire via the stent coiling it within the putative collecting system as observed fluorosco pically. I removed the cystoscope leaving the wire in place and passed a dual-lumen catheter over th e Sensor wire into the distal ureter, where it met a point of obstruction. A retrograde pyelogram wa s then performed. Left retrograde pyelography: Using a 70:30 mixture of Omnipaque and saline, contrast was injected vi a the second lumen of the dual-lumen catheter and did propagate beyond the point of obstruction throu gh the distal end to the mid and proximal ureter before entering the renal pelvis, which did delineat e without any signs of pelvocaliectasis. The stones were largely radiolucent. As a result, I passed a Bentson guidewire via the second lumen of the dual-lumen catheter coiling it alongside the Sensor wire within the renal pelvis. I then attempted to pass a flexible ureteroscope over the Bentson guid ewire after removing the dual-lumen catheter, but it would not pass beyond the point of obstruction i n the distal ureter. As a result, I then utilized the semi-rigid ureteroscope and pressurized saline irrigation under direct vision to enter the ureteral orifice and navigated into the distal ureter to the point of obstruction, which was the 5 to 6 mm calculus. There I was able to grasp the stone using a 1.9-Iranian 0 tip Nitinol basket and delivered the stone i ntact with ease. This was sent for chemical analysis. I then passed the semi-rigid ureteroscope adriana k into her distal ureter and passed the Bentson guidewire under direct vision up the ureter and coili ng it alongside the safety wire. I then removed the semi-rigid ureteroscope leaving the wire in plac e and passed the flexible ureteroscope over the Bentson guidewire all the way this time into the jonathan l pelvis. I then surveyed the renal pelvis and lower and mid pole calyces eventually going into the upper pole calyx, where the 9 mm calculus was noted. It was rather fixed in location; so, I utilized a 272 nm laser fiber at a power initially set at 0.8 joules and 15 hertz to begin to fragment the st one. That power was increased to 1 joule and 15 hertz before eventually increasing to 1 joule and 25 hertz to completely fragment the stone. Once the stone was fragmented, it did reveal that it was bl ocking the opening to an upper pole calyx, which was not excluded. Within that calyx, there was fluf fy debris consistent with likely prior infected urine. As a result, I passed the ureteroscope into t hat excluded calyx and aspirated some of that urine which was sent for culture as left renal aspirate urine culture. I then surveyed back through the upper and mid pole calyces fragmenting any addition al fragments into dust smaller than the size of the laser fiber before getting into the lower pole ca lyx where most of the dust had now settled. I then utilized the laser fiber at 1.2 joules and 25 her tz to continue to dust the stone fragments in that location to dust about the size of the laser fiber . Once this was complete, I then utilized the 1.9-Iranian 0 tip Nitinol basket to grasp as much of th at dust as I could and I back-loaded the ureteroscope and removed it along with the grab stone burden under direct vision. This was also sent for chemical analysis. I then back-loaded the cystoscope o danni the safety wire before passing a 6-Iranian x 26 cm double-J ureteral stent with a coil observed fl uoroscopically in that upper pole excluded calyx and 1 cystoscopically formed in her bladder. The st ent was left on its tether, which was eventually secured to her introitus using Mastisol and Steri-St rips after I decompressed her bladder of fluid and urine. She was then taken out of the lithotomy po sition, awakened from general anesthesia, transferred to a stretcher, and then transferred to the rec overy room in good condition. Complications: None. Discharge Disposition: I would like for her to keep the stent for the next few days and she could ei ther remove it herself at home on Saturday or come by the office for us to remove it at that time. I w ill discharge her with few additional days of antimicrobial given the excluded calyx and infected uri ne suspected there to cover her until the stent is removed on Saturday. Subsequent followup should be established if she is a recurrent stone former with a Litholink x2. Metabolic profile assessment don isak 1 month following stent removal, and she may follow up with me in about 2 to 3 months. WR/MODL Voice ID: [id number] Report ID: [id number]
[2023-11-19] MEDS ORDERED: PHENAZOPYRIDINE 100MG TAB PO ONE (09:22)
[2023-11-19] MEDS: PHENAZOPYRIDINE 100MG TAB PO ONE (09:24)
[2023-11-19 11:01] VITALS: BP 150/88; TEMP 96.5; O2SAT 95
== END 2023-11-19 10:24 | disposition home or self-care (01) ==
LOC: PRE 06:33 → OR 10:24
PROVIDERS: ATTEND Urology
PROC: 0T778DZ Dilation of Left Ureter with Intraluminal Device, Via Natural or Artificial Opening Endoscopic (ICD-10-PCS; 2023-11-19)
PROC: 0TC48ZZ Extirpation of Matter from Left Kidney Pelvis, Via Natural or Artificial Opening Endoscopic (ICD-10-PCS; principal; 2023-11-19 07:30)
DX: N20.2 Calculus of kidney with calculus of ureter (principal); F32.A Depression, unspecified; F98.8 Other specified behavioral and emotional disorders with onset usually occurring in childhood and adolescence; Z87.440 Personal history of urinary (tract) infections
CPT/HCPCS: 87088 ×2; 87086 ×2; 36415; 84703; 88300; 82360; 74450; 51610; 52356; J2704 ×2; J2001; J2371; J2250; J3010 ×2; J1100; J2405; J7120 ×2